=== PATIENT | male | born 1995 | race Caucasian/White ===

== ENCOUNTER 2024-09-22 13:13 | Emergency (ER) | payer OTHER ==
[~2024-09-22] VITALS: Ht 188 cm; Wt 110.4 kg
[2024-09-22 14:40] LABS: BASOPHILS 0.5 % (0-2); EOSINOPHILS 0.7 % (0-6); HEMATOCRIT 47.2 % (35.0-50.0); HEMOGLOBIN 16.4 g/dL (12.0-18.0); LYMPHOCYTES 16.9 % (24-44); MCH 32.3 (27-36); MCHC 34.7 g/dl (30-36); MCV 93.1 fl (81-99); MONOCYTES 7.3 % (0-12); NEUTROPHILS 74.6 % (39-80); PLATELET COUNT 240 K/uL (140-440); RBC 5.07 M/ul (4.3-5.7); RDW 13.2 (10.5-15.0)
[2024-09-22] MEDS ORDERED: SODIUM CHLORIDE 0.9% 1,000 ML IV ONE (14:45)
[2024-09-22] MEDS ORDERED: MORPHINE SULFATE 4 MG/ML VIAL IV ONE (14:45)
[2024-09-22 14:56] LABS: ALBUMIN 4.2 g/dL (3.4-5.0); ALBUMIN/GLOBULIN RATIO 1.08 (1.1-2.4); ANION GAP 12.5 (7-21); BILIRUBIN, TOTAL 0.9 ng/dL (0.2-1.0); BUN/CREATININE RATIO 8.82 (6.0-28.6); CALCIUM 9.5 mg/dL (8.5-10.1); CREATININE, SERUM 1.02 mg/dL (0.70-1.30); POTASSIUM 3.5 mmol/L (3.5-5.1); PROTEIN, TOTAL 8.1 g/dL (6.4-8.2)
[2024-09-22 15:05] LABS: BILIRUBIN, URINE NEGATIVE (negative); BLOOD/HGB, URINE TRACE-L (Negative); KETONE, URINE SMALL (Negative); LEUK ESTERASE, URINE NEGATIVE (negative); NITRITE, URINE NEGATIVE (negative)
[2024-09-22 15:11] LABS: EPITHELIAL CELLS, URINE 0 /lpf (0-1+); WHITE BLOOD CELLS, URINE 0-1 /HPF (0-5)
[2024-09-22 15:12] LABS: BACTERIA, URINE NONE SEEN /hpf (negative); CASTS, URINE NONE SEEN \\lpf; COLLECTION TYPE, URINE CLEAN CATCH; CRYSTALS, URINE NONE SEEN (0-1+); REFLEX CULTURE, URINE No (No)
[2024-09-22] MEDS ORDERED: ONDANSETRON ODT8 MG PO (16:07)
[2024-09-22] MEDS ORDERED: HYDROCODON-ACE1 EA10 PO (16:07)
[2024-09-22 16:26] LABS: AMPHETAMINES, URINE NEGATIVE (NEGATIVE); BARBITURATES, URINE NEGATIVE (NEGATIVE); BENZODIAZEPINE, URINE NEGATIVE (NEGATIVE); BUPRENORPHINE, URINE NEGATIVE (NEGATIVE); CANNABINOID, URINE NEGATIVE (NEGATIVE); COCAINE, URINE POSITIVE (NEGATIVE); ECSTASY, URINE NEGATIVE (NEGATIVE); FENTANYL, URINE NEGATIVE (NEGATIVE); METHADONE, URINE NEGATIVE (NEGATIVE); OPIATES, URINE NEGATIVE (NEGATIVE); OXYCODONE, URINE NEGATIVE (NEGATIVE); PHENCYCLIDINE, URINE NEGATIVE (NEGATIVE)
[2024-09-22 16:30] VITALS: BP 117/76
== END 2024-09-22 16:30 | disposition home or self-care (01) ==
LOC: ED 13:13
PROVIDERS: Emergency Medicine
DX: K80.20 Calculus of gallbladder without cholecystitis without obstruction (principal); F14.90 Cocaine use, unspecified, uncomplicated; F10.90 Alcohol use, unspecified, uncomplicated; Z88.0 Allergy status to penicillin
CPT/HCPCS: 36415; 76705; 80053; 80307; 81001; 83605; 83690; 85025; 96374; 99284-25; G0480; J2270; J7030

== ENCOUNTER 2024-10-10 08:30 | Day surgery (SDC) | payer OTHER ==
[2024-10-04 08:31] VITALS: BP 125/78
[~2024-10-10] VITALS: Ht 188 cm; Wt 110.0 kg
[~2024-10-10 08:30] MED LIST: CEFAZOLIN SODIUM 2 GM/20 ML SYR IV SCH; HEParin SOD (PORCINE) 5,000 UNIT/0.5 ML SYR SUB-Q SCH; HYDROCODON-ACE1 EA10 PO; IBLOOD GLUCOSE TEST STRIP 1 EA TEST VI PRN; LACTATED RINGER'S 1,000 ML IV SCH; LIDOCAINE HCL 1% 5 ML SDV INJ ONE; ONDANSETRON ODT8 MG PO; SODIUM CHLORIDE 0.9% 40 ML IV ONE; iopamidoL 30 ML VIAL ONE
[2024-10-10 08:42] VITALS: BP 124/69
[2024-10-10] MEDS ORDERED: SEVOFLURANE 250 ML BTL INH ONE (08:48)
[2024-10-10] MEDS ORDERED: SUGAMMADEX SODIUM 200 MG/2 ML ML ONE (09:12)
[2024-10-10] MEDS ORDERED: ACETAMINOPHEN 1,000 MG/100 ML VIAL ONE (09:12)
[2024-10-10] MEDS ORDERED: DEXAMETHASONE SOD PHOS 4 MG/ML VIAL ONE (09:12)
[2024-10-10] MEDS ORDERED: KETOROLAC TROMETHAMINE 30 MG/ML VIAL ONE (09:12)
[2024-10-10] MEDS ORDERED: fentaNYL citrate 250 MCG/5 ML VIAL ONE (09:12)
[2024-10-10] MEDS ORDERED: SUCCINYLCHOLINE IN 0.9% NACL 200 MG/10 ML SYRINGE ONE (09:12)
[2024-10-10] MEDS ORDERED: propofoL 200 MG/20 ML VIAL ONE (09:12)
[2024-10-10] MEDS ORDERED: ondansetron HCL 4 MG/2 ML VIAL ONE (09:12)
[2024-10-10] MEDS ORDERED: ROCURONIUM BROMIDE 50 MG/5 ML SYR ONE ×2 (09:12→10:22)
[2024-10-10] MEDS ORDERED: LIDOCAINE HCL 2% 20 MG/ML VIAL INJ ONE (09:12)
[2024-10-10] MEDS ORDERED: MIDAZOLAM HCL 2 MG/2 ML VIAL ONE (09:13)
[2024-10-10] MEDS ORDERED: iopamidoL 30 ML VIAL ONE (10:37)
[2024-10-10] MEDS ORDERED: LACTATED RINGER'S 1,000 ML IV ONE (10:52)
[2024-10-10] MEDS ORDERED: ondansetron HCL 4 MG/2 ML VIAL IV PRN (11:15)
[2024-10-10] MEDS ORDERED: NALOXONE HCL 0.4 MG SYR IV PRN ×2 (11:15→12:15)
[2024-10-10] MEDS ORDERED: PROCHLORPERAZINE EDISYLATE 10 MG/2 ML VIAL IV PRN (11:15)
[2024-10-10] MEDS ORDERED: fentaNYL citrate 50 MCG/ML SDV IV PRN (11:15)
[2024-10-10] MEDS ORDERED: HYDROmorphone HCL 1 MG/ML SYR IV PRN (11:15)
[2024-10-10] MEDS ORDERED: IBLOOD GLUCOSE TEST STRIP 1 EA TEST VI PRN (11:15)
[2024-10-10] MEDS ORDERED: droPERidol 5 MG/2 ML VIAL IV PRN (11:15)
--- NOTE | 2024-10-10 12:04 | NUR ---
10/10/24 1204 Cherrie Carter 1145-PT ARRIVES TO PACU RESTING SEMI FOWLERS. VSS ON 6L VIA MASK, OPA IN PLACE, PT REQUIRING MANUAL JAW THRUST, REU. PT NOT RESPONSIVE TO NOXIOUS STIMULI.
[2024-10-10] MEDS ORDERED: LEVOFLOXACIN500 MG PO (12:10)
[2024-10-10] MEDS ORDERED: ACETAMINOPHEN500 MG PO (12:11)
[2024-10-10] MEDS ORDERED: IBUPROFEN600 MG PO (12:11)
[2024-10-10] MEDS ORDERED: OXYCODON-ACETA1 EAC2 PO (12:11)
[2024-10-10] MEDS ORDERED: OXYCODONE/APAP 7.5/325 TAB PO PRN (12:15)
[2024-10-10] MEDS ORDERED: ACETAMINOPHEN 500 MG TAB PO PRN (12:15)
[2024-10-10] MEDS ORDERED: LACTATED RINGER'S 1,000 ML IV SCH (12:15)
[2024-10-10] MEDS ORDERED: levoFLOXacin 500 MG TAB PO SCH (12:15)
[2024-10-10] MEDS ORDERED: IBUPROFEN 600 MG TAB PO PRN (12:15)
[2024-10-10 12:40] VITALS: BP 113/72
--- NOTE | 2024-10-10 13:30 | NUR ---
1245: PATIENT BACK IN DAY SURGERY ROOM FROM PACU. VS CHECKED. IV SITE WNL. ABDOMEN X 5 SITES WITH STERI STRIPS WITH SMALL AMOUNT OF RED DRAINAGE. MIDLINE UPPER ABDOMEN SITE REINFORCED WITH GUAZE IN PACU. RATES PAIN 4/10. ICE WATER PLACED AT BEDSIDE TO SIP ON. AT BEDSIDE. SCDs ON. CALL LIGHT WITHIN REACH. 1257: PATIENT GIVEN JELLO TO EAT. THEN MEDICATED FOR PAIN WITH 1 TAB OF PERCOCET. WARM BLANKETS GIVEN. CALL LIGHT WITHIN REACH. AT BEDSIDE.
[2024-10-10 13:44] VITALS: BP 127/68
--- NOTE | 2024-10-10 14:33 | NUR ---
PATIENT AWAKENED. DISCHARGE INSTRUCTIONS GIVEN TO PATIENT AND . HOB RAISED AND PATIENT REPOSITIONED SELF IN BED. WILL CALL WHEN READY TO GET OOB. CALL LIGHT WITHIN REACH. AT BEDSIDE.
[2024-10-10 14:45] VITALS: BP 92/49
--- NOTE | 2024-10-10 14:47 | NUR ---
STAND BY ASSIST WHILE PATIENT MOVED TO SITTING ON SIDE OF BED. PATIENT C/O DIZZINESS WHILE SITTING ON SIDE OF BED. PATIENT GIVEN MORE TIME BEFORE STANDING. UPON STANDING, DIZZINESS CONTINUED. PATIENT INSTRUCTED TO SIT BACK DOWN ON SIDE OF BED. VS CHECKED. HR LOW IN THE HIGH 40s. BP ALSO LOW AT 92/49. PATIENT ENCOURAGED TO LAY BACK DOWN. PATIENT RESTING IN BED. WILL TRY GETTING OOB AGAIN LATER. AT BEDSIDE. CALL LIGHT WITHIN REACH.
[2024-10-10 15:02] VITALS: BP 126/67
--- NOTE | 2024-10-10 15:36 | NUR ---
1500: PATIENT PLACED CALL USING CALL LIGHT. PATIENT WANTS TO TRY GETTING OOB AND WALKING TO BATHROOM AGAIN. VS CHECKED. HR AND BP INCREASED. STAND BY ASSIST WHILE PATIENT MOVED TO SITTING ON SIDE OF BED. PATIENT STATES DIZZINESS BETTER THAN LAST ATTEMPT. PATIENT STOOD AT BEDSIDE. THEN WALKED IN ROOM. PATIENT STATES DOING WELL. STAND BY ASSIST TO BATHROOM. GAIT STEADY. VOID PER URINAL. GAIT STEADY BACK TO ROOM. PATIENT GETTING DRESSED.
--- NOTE | 2024-10-10 15:41 | NUR ---
1520: PATIENT GIVEN PO TABLET OF LEVAQUIN PER DR. VEGA'S ORDER. IV DC'D WNL. TIP INTACT. DRESSING APPLIED. 1524: PATIENT DISCHARGED TO HOME VIA WHEELCHAIR WITH .
--- NOTE | 2024-10-12 10:37 | OR ---
[facility] [address], [place] [address] Signed DATE OF OPERATION: 10/10/2024 SURGEON: Jah Vega MD PREOPERATIVE DIAGNOSES: 1. Chronic calculous cholecystitis. 2. Severe subacute cholecystitis with common duct stone suspicion. PROCEDURES: 1. Laparoscopic cholecystectomy with cholangiogram. 2. Laparoscopic common bile duct exploration (transcystic duct dilation, irrigation of the duct, and completion cholangiogram; prolonged, complicated, difficult). ANESTHESIA: General endotracheal; Louis Dial CRNA and local 10 mL of 0.25% Marcaine with epinephrine. INDICATIONS: This 29-year-old white man is a patient of Dr. Marin of [facility] and presented to the emergency room and evaluated by Dr. Currie with right upper abdominal pain and gallbladder ultrasound confirmed gallstones without pericholecystic fluid or gallbladder wall thickening. White count was elevated to greater than 14,000, this was approximately a week ago. Evaluation shows him to have improved one of his symptoms with significant pain in the right subcostal area after eating food. He is admitted at this time to undergo cholecystectomy preferred by laparoscopic approach. He understands the risk of bleeding, infection, need for bile duct exploration. Risks of bile duct injury and other unforeseen complications and wished to proceed. FINDINGS: The gallbladder was rather severely subacutely inflamed actually. No doubt the interval of time since his presentation had allowed for progression of his problem. The gallbladder wall was thickened quite markedly so. Cholangiogram showed a filling defect in the mid common duct, which suspicious for gallstone and on that basis, a transcystic common duct exploration was undertaken with dilation of the ampulla and cystic duct, flushing of the common duct, and completion cholangiogram, which showed the duct to be clear. The gallbladder itself had three rather large stones. The posterior wall was quite inflamed. The gallbladder was quite markedly thickened. The liver itself was normal. He tolerated procedure well. It was prolonged, complicated, and difficult, lasting more than three times normal. Electronically Signed By: JAH VEGA MD 10/12/24 [facility] PATIENT NAME: COLLETTE ADAMS OPERATIVE REPORT DATE OF : [birth year] REPORT #: [id number] PHYSICIAN: JAH VEGA MD PCP: [facility] REPORT IS CONFIDENTIAL AND NOT TO BE RELEASED WITHOUT AUTHORIZATION [facility] [address], [place] [address] Signed DESCRIPTION OF PROCEDURE: The patient was brought to the operating room and given a general endotracheal anesthetic. Preoperative antibiotic Ancef was given. Sequential compression device stockings used and heparin subcutaneously administered. The abdomen was clipped and prepared with chlorhexidine solution and draped sterilely. An infraumbilical incision was made using an open Kevin cannula technique. Pneumoperitoneum achieved to a level of 14 mmHg of carbon dioxide gas. Intra-abdominal inspection showed no sign of ascites or carcinomatosis. The gallbladder was obscured from view at that point. Three additional trocars were placed in usual configuration in the subxiphoid, right midclavicular, and right anterior axillary line. The gallbladder could be elevated cephalad and the adhesions of omentum to the undersurface were taken down with blunt electrocautery dissection. The gallbladder was quite markedly thickened and unable to be grasped securely, and therefore decompression of the gallbladder was undertaken with the gallbladder decompression needle. This allowed for easier grasping of the gallbladder and elevated cephalad more fully. Quite marked inflammation was noted in the infundibulum and distortion related to large gallstones. Using blunt electrocautery dissection, meticulous care of the cystic duct was ultimately dissected free from surrounding structures. This took quite a long time considering the inflammation and thickened tissue. A clip was applied across the gallbladder cystic duct junction and transverse choledochotomy made in the cystic duct. Egress of bile was noted. Using an Allen type cholangiocatheter, intraoperative cholangiography was undertaken under surgeon directed fluoroscopy. Free flow of contrast was noted into the biliary tree with emptying into the duodenum. There did appear to be rather persisting possible filling defect in the mid common duct. On that basis, a transcystic duct exploration was deemed appropriate. A 5 mm trocar was placed under direct visualization in alignment with the cystic duct. Passage into the cystic duct choledochotomy with a flexible J-wire was undertaken without impediment or complication. Fluoroscopy was used to confirm this. ERCP dilation catheter was then passed over the wire under direct visualization positioning the radiopaque markers over the ampulla. Under direct visualization with a 3 mL syringe and radiocontrast, the ampulla was dilated carefully under fluoroscopic control. Balloon was decompressed and withdrawn to the cystic duct common duct junction and dilation once again undertaken. Care was taken to assure that the balloon was outside the choledochotomy during the course of that maneuver. The wire within the balloon catheter itself was removed, and ultimately the wire through the cystic duct removed and cholangiography undertaken with the ERCP catheter. This showed free flow of contrast in the duodenum. No sign of impediment. No sign of filling defect or other problem. The common duct had been irrigated with saline solution prior to completion cholangiogram. Electronically Signed By: JAH VEGA MD 10/12/24 1037 PATIENT NAME: COLLETTE ADAMS LUOIE OPERATIVE REPORT DATE OF : [birth year] REPORT #: [id number] PHYSICIAN: JAH VEGA MD PCP: [facility] REPORT IS CONFIDENTIAL AND NOT TO BE RELEASED WITHOUT AUTHORIZATION [facility] [address], [place] [address] Signed Catheter was removed, the cystic duct was triply clipped and divided. The gallbladder was then dissected free in a retrograde fashion using electrocautery. Cystic arterial branches were clipped as necessary. The dissection was challenged on the basis of the inflammatory nature of the gallbladder, but the gallbladder was removed entirely. Opening of the common bile duct in the posterior wall did occur spilling one large stone, which was later retrieved without question. The gallbladder once excised was placed in an Endobag and extracted through the infraumbilical port site, opened on the back table and found to have severe inflammatory mucosal change, three very large gallstones. No sign of neoplasm proper. Irrigation was undertaken from the subhepatic space. Liliya hemostatic agent was applied to the area. There was no bile leak or active bleeding of course. Excess irrigation fluid was suctioned free and plans made for closure. The trocars removed under direct visualization showing no sign of bleeding. The infraumbilical fascial incision reapproximated with interrupted 0-Vicryl suture. The other wounds were irrigated and 10 mL of 0.25% Marcaine with epinephrine was injected locally. The skin was then closed with interrupted 3-0 Vicryl. Steri-Strips were applied. The patient was ultimately extubated and transported to the recovery room in good condition, having suffered no complications. Sponge, needle, and instrument counts reported as correct x3. The operation was prolonged, complicated, and difficult on the basis of inflammatory changes, common duct issues and so forth, but it was accomplished safely. Jah Vega MD JM/MODL /[id number] cc: Dr. Currie [facility] Yenny Marin MD Electronically Signed By: JAH VEGA MD 10/12/24 1037 PATIENT NAME: COLLETTE ADAMS OPERATIVE REPORT DATE OF : [birth year] REPORT #: [id number] PHYSICIAN: JAH VEGA MD PCP: [facility] REPORT IS CONFIDENTIAL AND NOT TO BE RELEASED WITHOUT AUTHORIZATION [facility] [address] [facility] [place] [address] Signed Copies: YENNY MARIN MD ~ Electronically Signed By: JAH VEGA MD 10/12/24 1037 PATIENT NAME: COLLETTE ADAMS OPERATIVE REPORT DATE OF : [birth year] REPORT #: [id number] PHYSICIAN: JAH VEGA MD PCP: [facility] REPORT IS CONFIDENTIAL AND NOT TO BE RELEASED WITHOUT AUTHORIZATION
--- NOTE | 2024-10-13 14:53 | PATH ---
[facility] [address] [place] [address] Signed SPECIMEN(S): A GALLBLADDER WITH STONES SPECIMEN SOURCE: A. GALLBLADDER WITH STONES CLINICAL HISTORY: Chronic cholecystitis FINAL PATHOLOGIC DIAGNOSIS: Gallbladder, cholecystitis: - Morphologic features of chronic cholecystitis with cholelithiasis NA MICROSCOPIC EXAMINATION: Histologic sections of all submitted blocks are examined by light microscopy. These findings, together with the gross examination, support the pathologic diagnosis. GROSS DESCRIPTION: The specimen, labeled and designated "Lennox Hinds, gallbladder with stones," is received in formalin and consists of Specimen: Disrupted gallbladder. Dimensions: 10.7 x 3.6 x 3.5 cm. Serosa: Smooth with diffuse areas of hemorrhage. Cystic Duct: Unobstructed. Calculi: Present. Mucosa: Kendrick-brown. Summary velvety with areas of green purulent material. Wall thickness: 0.5 cm. Lymph node: No pericystic lymph nodes are grossly identified. Additional: None. Zipper Measurer sections are submitted in (A1). AA (under the direct supervision of a pathologist) The Gross Description was prepared using a voice recognition system. The report was reviewed for accuracy; however, sound-alike word errors, addition and/or deletions may occur. If there is any question about this report, please contact Client Services. ADDITIONAL NOTES: Immunohistochemical and/or in situ hybridization studies if performed in this case included appropriate positive controls that reacted as expected. This test was developed and its performance PATIENT NAME: COLLETTE HINDS LOUIE PATHOLOGY DATE OF : [birth year] REPORT #: [id number] PHYSICIAN: BE MUJICA PCP: [facility] REPORT IS CONFIDENTIAL AND NOT TO BE RELEASED WITHOUT AUTHORIZATION [address] [address] Signed characteristics determined by [facility]. It has not been cleared or approved by the U.S. Food and Drug Administration. The FDA has determined that such clearance or approval is not necessary. This test is used for clinical purposes. It should not be regarded as investigational or for research. [facility] is certified under the Clinical Laboratory Improvement Amendments of 1988 (CLIA) as qualified to perform high complexity clinical laboratory testing. PERFORMING LABORATORY: Technical component was performed by [facility], [address] [place] [address] (CLIA# [id number]). Professional interpretation was performed by [facility], [address] [place] [address] (CLIA#: [id number]). Diagnostician: Leny Mandujano MD Pathologist Electronically Signed 10/13/2024 Copies: ~ PATIENT NAME: COLLETTE HINDS PATHOLOGY DATE OF : [birth year] REPORT #: [id number] PHYSICIAN: BE PATHOLOGY PCP: [facility] REPORT IS CONFIDENTIAL AND NOT TO BE RELEASED WITHOUT AUTHORIZATION
== END 2024-10-10 15:24 | disposition home or self-care (01) ==
LOC: DS 08:30
PROVIDERS: ATTEND Surgery
PROC: BF03YZZ Plain Radiography of Gallbladder and Bile Ducts using Other Contrast (ICD-10-PCS; 2024-10-10)
PROC: 0FT44ZZ Resection of Gallbladder, Percutaneous Endoscopic Approach (ICD-10-PCS; principal; 2024-10-10 09:30)
PROC: 0FC94ZZ Extirpation of Matter from Common Bile Duct, Percutaneous Endoscopic Approach (ICD-10-PCS; 2024-10-10 09:30)
DX: K80.10 Calculus of gallbladder with chronic cholecystitis without obstruction (principal); F17.210 Nicotine dependence, cigarettes, uncomplicated; I10 Essential (primary) hypertension; K21.9 Gastro-esophageal reflux disease without esophagitis; Z88.0 Allergy status to penicillin
CPT/HCPCS: 00790; 74300; 80053; C1726; C1769; C1894; J0131; J0330; J0690; J1100; J1644; J1885; J2250; J2405; J2704; J3010; J3490; J7121; Q9967